=== PATIENT | female | born 1955 | race Caucasian/White ===

== ENCOUNTER → 2017-06-16 | Outpatient (CLI) | payer OTHER | LOC: CIMAGING 08:11 | PROVIDERS: ATTEND Family Medicine | DX: Z12.31 Encounter for screening mammogram for malignant neoplasm of breast (principal); Z80.3 Family history of malignant neoplasm of breast | CPT/HCPCS: G0202 ==

== ENCOUNTER → 2017-09-24 | Outpatient (CLI) | payer OTHER | LOC: CIMAGING 07:12 | PROVIDERS: ATTEND Family Medicine | DX: K59.00 Constipation, unspecified (principal); R11.2 Nausea with vomiting, unspecified | CPT/HCPCS: 76700-PO ==

== ENCOUNTER → 2019-05-25 | Outpatient (CLI) | payer BC | LOC: CIMAGING 12:36 ==